=== PATIENT | female | born 1970 | race Caucasian/White ===

== ENCOUNTER 2019-09-20 00:36 | Outpatient (CLI) | payer BC, SELFPAY ==
[2019-09-20 16:46] LABS: SARS-CoV-2 RNA PCR Negative
== END 2019-09-20 00:37 | disposition home or self-care (01) ==
LOC: ANHCOVIDDT 00:36
PROVIDERS: PCP Family Medicine Sports Medicine; Visit Provider Internal Medicine Gastroenterology
DX: Z01.818 Encounter for other preprocedural examination (principal); Z11.59 Encounter for screening for other viral diseases
CPT/HCPCS: 87635; C9803; U0003

== ENCOUNTER 2019-09-23 00:57 | Day surgery (SDC) | payer BC, SELFPAY ==
[2019-09-18 09:21] VITALS: BMI 28.4
[2019-09-23 06:32] VITALS: BP 125/82; PULSE 68; RESP 16; TEMP 36.3; O2SAT 100; BMI 28.7
[2019-09-23] MEDS: LACTATED RINGERS 1,000 ML 150 ML IV CONT (06:46)
--- NOTE | 2019-09-23 06:56 | P.PNAN_ITS ---
Anes - Initial Pre Proc Eval Procedure: Operation Date: 09/23/19 07:30 Proposed Procedures p Esophagogastroduodenoscopy - Luciano Solomon MD Date/Time: 09/23/19 06:56 Surgeon: Luciano Solomon MD Pre Op Diagnosis: Abdominal Pain Patient Data Age: 49 Gender: F Height: 5 ft 2 in Weight: 71.3 kg Last Vital Signs Temp 36.3 C L 09/23/19 06:32 Pulse 68 09/23/19 06:32 Resp 16 09/23/19 06:32 BP 125/82 09/23/19 06:32 Pulse Ox 100 09/23/19 06:32 Allergies Allergy/AdvReac Type Severity Reaction Status Date / Time codeine Allergy Intermediate Itching Verified 09/23/19 06:31 Home Medications Medication Instructions Recorded Confirmed Type albuterol sulfate [Ventolin HFA] 2 puff INHALATION DAILY 09/18/19 09/23/19 History Patient hx anesthesia problems: none Family hx anesthesia problems: none [facility] Past Medical History Medical History (Updated 09/23/19 @ 06:56 by Sai Ellis MD) CAD (coronary artery disease) Constipation GERD (gastroesophageal reflux disease) Nausea Surgical History Surgical History (Updated 09/23/19 @ 06:57 by Sai Ellis MD) H/O: hysterectomy Social History Social History (Updated 09/23/19 @ 06:57 by Sai Ellis MD) Smoking status: Current every day smoker Anes - Eval Final PreProcedure Day of Procedure 09/23/19 06:56 Patient weight: overweight Heart: regular rate and rhythm Lungs: clear to auscultation Airway: Mallampati scale class II Neurological: alert and oriented Last oral intake: >/= 8 hours ASA classification: III Emergent: no Anesthetic plan: proceed Anesthesia type and monitoring: general GIVS and standard monitoring Informed Consent: The patient's anesthetic plan and its attendant risks and benefits were discussed with the patient/family/POA. Questions were solicited and answers provided to the satisfaction of the patient/family/POA.
--- NOTE | 2019-09-23 07:36 | WPDHPUPDATE1 ---
History and Physical Update Update Date/Time: 09/23/19 07:36 History and Physical has been reviewed, including an updated exam of the patient. There are NO changes in the patient's condition. Risks, benefits, and alternatives have been discussed and questions answered. Patient agrees to proceed with procedure.
[2019-09-23 07:53] VITALS: BP 111/72; PULSE 72; RESP 21; O2SAT 97
[2019-09-23 08:03] VITALS: BP 108/80; PULSE 74; RESP 23; O2SAT 99
[2019-09-23 08:13] VITALS: BP 107/80; PULSE 75; RESP 28; O2SAT 98
== END 2019-09-23 08:25 | disposition home or self-care (01) ==
PROVIDERS: PCP Family Medicine Sports Medicine; Visit Provider Internal Medicine Gastroenterology
PROC: 0DJ08ZZ Inspection of Upper Intestinal Tract, Via Natural or Artificial Opening Endoscopic (ICD-10-PCS; CPT 43235; principal; 2019-09-23 07:30)
DX: R10.9 Unspecified abdominal pain (principal); R11.0 Nausea; K21.9 Gastro-esophageal reflux disease without esophagitis; I25.10 Atherosclerotic heart disease of native coronary artery without angina pectoris; K59.00 Constipation, unspecified
CPT/HCPCS: 43239; 88305; J2001; J2704; J7120